=== PATIENT | female | born 2000 | race Caucasian/White ===

== ENCOUNTER → 2020-03-04 | Outpatient (CLI) | payer OTHER ==
[~2020-03-04] MED LIST: ALBU90OI INH; AMOX500 PO; AMOX50SU PO; AZIT250 PO; CEPH250SUA PO; CRUTCH3 USE; NAPR375 PO; ONDA8ODT MM; PRED15SY PO; PRED20 PO; PROCODE120 PO; RXCEPH250S PO; VENL150ER PO; VITAMINS; Zofran Odt4 MG SL
== END | disposition home or self-care (01) ==
LOC: LAB SHORT 13:19 → LAB EV 13:19
DX: R53.83 Other fatigue (principal); Z20.828 Contact with and (suspected) exposure to other viral communicable diseases
CPT/HCPCS: U0003

== ENCOUNTER → 2021-01-06 | Outpatient (CLI) | payer OTHER ==
[2021-01-09 10:10] LABS: CHLAMYDIA BY NAA Negative (Negative); GONOCOCCUS BY NAA Negative (Negative); TRICH VAG BY NAA Negative (Negative)
== END | disposition home or self-care (01) ==
LOC: LAB SHORT 19:28
PROVIDERS: Nurse Practitioner
DX: Z12.4 Encounter for screening for malignant neoplasm of cervix (principal); N72 Inflammatory disease of cervix uteri
CPT/HCPCS: 87070; 87205; 87491; 87591; 87661; G0123

== ENCOUNTER 2022-01-29 11:18 | Emergency (ER) | payer OTHER ==
[~2022-01-29] VITALS: Ht 157.5 cm; Wt 103.4 kg
[~2022-01-29 11:18] MED LIST changes: +ANTIDEPRESSANT PO; +DULO60 PO; +ESCI10 PO; +TRI-LO-SPRINTE1 EACH PO
[2022-01-29 12:20] LABS: BASOPHILS ABSOLUTE AUTO 0.06 K/mm3 (0.00-0.23); BASOPHILS PERCENT AUTO 1 % (0-2); EOSINOPHILS ABSOLUTE AUTO 0.24 K/mm3 (0.00-0.68); EOSINOPHILS PERCENT AUTO 3 % (0-6); Hematocrit 40.7 % (33.0-51.0); Hemoglobin 13.1 g/dL (11.5-16.0); IMMATURE GRAN ABSOLUTE AUTO 0.03 K/mm3 (0.00-0.10); IMMATURE GRAN PERCENT AUTO 0 % (0-1); LYMPHOCYTES PERCENT AUTO 32 % (21-46); MONOCYTES ABSOLUTE AUTO 0.62 K/mm3 (0.16-1.47); MONOCYTES PERCENT AUTO 7 % (4-13); Mean Corpuscular HGB Conc 32.2 g/dL (31.5-36.5); Mean Corpuscular Volume 84 fL (80-100); Mean Platelet Volume 10.3 fL (9.1-12.4); NEUTROPHILS PERCENT AUTO 58 % (41-73); Platelet Count 444 K/mm3 (150-400); RDW Coefficient Variation 13.7 % (11.7-14.2); RDW Standard Deviation 42.2 fL (35.1-46.3); Red Blood Cell Count 4.86 M/mm3 (3.80-5.20); White Blood Cell Count 9.35 K/mm3 (4.00-11.30)
[2022-01-29] MEDS ORDERED: ONDA4ODT (12:30)
[2022-01-29] MEDS ORDERED: Percocet 5-3251 EACH (12:30)
[2022-01-29 12:32] LABS: Alanine Aminotransfer (ALT/SGP 42 U/L (12-78); Albumin/Globulin Ratio 0.7 (0.8-1.8); Alk Phos 83 U/L (50-136); Anion Gap 5 mmol/L (6-16); Aspartate Aminotrans (AST/SGOT 23 U/L (12-37); Bilirubin, Total 0.3 mg/dL (0.1-1.0); Blood Urea Nitrogen 8 mg/dL (8-24); Bun/Creatinine Ratio 15.2 (12.0-20.0); CO2, Blood 28 mmol/L (21-32); Chloride, Blood 105 mmol/L (98-108); Creatinine, Blood 0.53 mg/dL (0.40-1.00); Globulin, Blood 4.4 g/dL (2.2-4.0); Glomerular Filtration Rate >60 (60-); Glucose, Blood 88 mg/dL (70-99); Potassium, Blood 3.9 mmol/L (3.5-5.5); Sodium, Blood 138 mmol/L (136-145); Total Protein, Blood 7.4 g/dL (6.4-8.2)
[2022-01-29 13:31] LABS: Source, Urine Clean Catch
[2022-01-29 13:38] LABS: Appearance, Urine Hazy (Clear); Bilirubin, Urine Neg (Neg); Blood, Urine 5+ (Neg); Color, Urine Amber (P-Yellow); Glucose Qualitative, Urine Neg (Neg); Ketones, Urine Neg (Neg); Leukocyte Esterase, Urine Neg (Neg); Nitrite, Urine Neg (Neg); Protein, Urine 1+ (Neg); Specific Gravity, Urine 1.005 (1.003-1.022); Urobilinogen, Urine NORM (Normal)
[2022-01-29 13:51] LABS: Red Blood Cells, Urine TNTC /hpf (0-2); Squamous Epithelial Cells Few /hpf (Few)
[2022-01-29 13:53] LABS: White Blood Cells, Urine Rare /hpf (0-5)
[2022-01-29 13:54] LABS: Bacteria Few /hpf
== END 2022-01-29 13:32 | disposition home or self-care (01) ==
LOC: ER 11:18
PROVIDERS: Emergency Medicine
DX: N93.8 Other specified abnormal uterine and vaginal bleeding (principal); M19.90 Unspecified osteoarthritis, unspecified site; F41.8 Other specified anxiety disorders; Z98.890 Other specified postprocedural states; Z79.899 Other long term (current) drug therapy
CPT/HCPCS: 36415; 80053; 81001; 81025; 85025; 86900; 86901; J1170; J2405; J7030

== ENCOUNTER → 2022-04-15 | Outpatient (CLI) | payer OTHER ==
[~2022-04-15] MED LIST changes: +ONDA4ODT; +Percocet 5-3251 EACH
== END | disposition home or self-care (01) ==
LOC: LAB 12:08 → LAB SHORT 12:08
DX: R30.9 Painful micturition, unspecified (principal)
CPT/HCPCS: 87086

== ENCOUNTER → 2022-04-28 | Outpatient (CLI) | payer OTHER ==
[2022-04-29 21:06] LABS: T-TRANSGLUTAMINASE (TTG) IGA <2 U/mL (0-3); T-TRANSGLUTAMINASE (TTG) IGG <2 U/mL (0-5)
== END | disposition home or self-care (01) ==
LOC: LAB SHORT 11:00 → LAB 11:00
PROVIDERS: Internal Medicine
DX: D50.9 Iron deficiency anemia, unspecified (principal)
CPT/HCPCS: 83516; 86364

== ENCOUNTER → 2022-07-13 | Outpatient (CLI) | payer OTHER | LOC: LAB SHORT 10:45 → LAB 10:45 | DX: R15.0 Incomplete defecation (principal) | CPT/HCPCS: 83993 ==

== ENCOUNTER 2023-02-12 18:16 | Emergency (ER) | payer OTHER ==
[~2023-02-12] VITALS: Ht 152.4 cm; Wt 104.8 kg
[2023-02-12 18:52] LABS: BASOPHILS ABSOLUTE AUTO 0.09 K/mm3 (0.00-0.23); BASOPHILS PERCENT AUTO 1 % (0-2); EOSINOPHILS ABSOLUTE AUTO 0.33 K/mm3 (0.00-0.68); EOSINOPHILS PERCENT AUTO 3 % (0-6); Hematocrit 43.6 % (33.0-51.0); Hemoglobin 14.4 g/dL (11.5-16.0); IMMATURE GRAN ABSOLUTE AUTO 0.03 K/mm3 (0.00-0.10); IMMATURE GRAN PERCENT AUTO 0 % (0-1); LYMPHOCYTES ABSOLUTE AUTO 3.39 K/mm3 (0.84-5.20); LYMPHOCYTES PERCENT AUTO 34 % (21-46); MONOCYTES ABSOLUTE AUTO 0.61 K/mm3 (0.16-1.47); MONOCYTES PERCENT AUTO 6 % (4-13); Mean Corpuscular HGB 28.1 pg (26.0-34.0); Mean Corpuscular Volume 85 fL (80-100); Mean Platelet Volume 10.1 fL (9.1-12.4); NEUTROPHILS ABSOLUTE AUTO 5.48 K/mm3 (1.96-9.15); NEUTROPHILS PERCENT AUTO 55 % (41-73); Platelet Count 426 K/mm3 (150-400); RDW Coefficient Variation 12.5 % (11.7-14.2); RDW Standard Deviation 38.7 fL (35.1-46.3); Red Blood Cell Count 5.12 M/mm3 (3.80-5.20); White Blood Cell Count 9.93 K/mm3 (4.00-11.30)
[2023-02-12 19:27] LABS: Albumin, Blood 3.6 g/dL (3.4-5.0); Albumin/Globulin Ratio 0.9 (0.8-1.8); Bilirubin, Total 0.2 mg/dL (0.1-1.0); Bun/Creatinine Ratio 27.5 (12.0-20.0); Calcium, Blood 9.2 mg/dL (8.5-10.1); Creatinine, Blood 0.44 mg/dL (0.40-1.00); Globulin, Blood 4.1 g/dL (2.2-4.0); Potassium, Blood 4.1 mmol/L (3.5-5.5); Total Protein, Blood 7.7 g/dL (6.4-8.2)
[2023-02-12] MEDS ORDERED: HYDACE25S PR (21:40)
[2023-02-12 21:50] VITALS: BP 109/66
== END 2023-02-12 21:52 | disposition home or self-care (01) ==
LOC: ER 18:16
PROVIDERS: Student in an Organized Health Care Education/Training Program
DX: K62.5 Hemorrhage of anus and rectum (principal); Z79.899 Other long term (current) drug therapy
CPT/HCPCS: 74177; 80053; 85025; 86850; 86900; 86901; 99284-25; Q9967

== ENCOUNTER → 2023-02-13 | Outpatient (CLI) | payer OTHER ==
[~2023-02-13] MED LIST changes: +FERSU90EL; +HYDACE25S PR; +METF500; +MULVITA; +PROG100
== END ==
LOC: LAB 13:41 → LAB SHORT 13:41
DX: B37.31 Acute candidiasis of vulva and vagina (principal)
CPT/HCPCS: 87070; 87205

== ENCOUNTER 2023-02-17 12:38 | Day surgery (SDC) | payer OTHER ==
[~2023-02-17] VITALS: Ht 152.4 cm; Wt 101.4 kg
[~2023-02-17 12:38] MED LIST changes: -FERSU90EL; -METF500; -MULVITA; -PROG100
[2023-02-17] MEDS ORDERED: FERSU90EL (14:18)
[2023-02-17] MEDS ORDERED: PROG100 (14:18)
[2023-02-17] MEDS ORDERED: MULVITA (14:18)
[2023-02-17] MEDS ORDERED: METF500 (14:18)
[2023-02-17 17:20] VITALS: BP 121/91
== END 2023-02-17 17:36 | disposition home or self-care (01) ==
LOC: ORSCSDS 12:38
PROVIDERS: Internal Medicine Gastroenterology
PROC: 0DJD8ZZ Inspection of Lower Intestinal Tract, Via Natural or Artificial Opening Endoscopic (ICD-10-PCS; principal; 2023-02-17 15:00)
PROC: 0DB78ZX Excision of Stomach, Pylorus, Via Natural or Artificial Opening Endoscopic, Diagnostic (ICD-10-PCS; principal; 2023-02-17 15:00)
PROC: 0DB98ZX Excision of Duodenum, Via Natural or Artificial Opening Endoscopic, Diagnostic (ICD-10-PCS; principal; 2023-02-17 15:00)
DX: R10.13 Epigastric pain (principal); K62.5 Hemorrhage of anus and rectum; R10.32 Left lower quadrant pain; K59.00 Constipation, unspecified; K64.8 Other hemorrhoids; K59.09 Other constipation; K29.70 Gastritis, unspecified, without bleeding; B96.81 Helicobacter pylori [H. pylori] as the cause of diseases classified elsewhere; K29.80 Duodenitis without bleeding; R73.03 Prediabetes; F41.8 Other specified anxiety disorders; Z79.84 Long term (current) use of oral hypoglycemic drugs; Z79.899 Other long term (current) drug therapy; E66.01 Morbid (severe) obesity due to excess calories; Z68.41 Body mass index [BMI] 40.0-44.9, adult
CPT/HCPCS: 82947; 88305; J0461; J2001; J2405; J2704; J7120; Q9968

== ENCOUNTER → 2023-07-12 | Outpatient (CLI) | payer OTHER ==
[~2023-07-12] MED LIST changes: +FERSU90EL; +METF500; +MULVITA; +PROG100
== END | disposition home or self-care (01) ==
LOC: LAB 11:12 → LAB SHORT 11:12
DX: M54.50 Low back pain, unspecified (principal)
CPT/HCPCS: 87086

== ENCOUNTER 2023-09-01 03:06 | Day surgery (SDC) | payer OTHER ==
[2023-09-01 15:00] VITALS: BP 115/76
[2023-09-01] MEDS ORDERED: Pyridium100 MG PO (16:02)
[2023-09-01] MEDS ORDERED: IRON PO (16:04)
== END 2023-09-01 16:16 | disposition home or self-care (01) ==
LOC: ATC 03:06
DX: R77.8 Other specified abnormalities of plasma proteins (principal); F32.9 Major depressive disorder, single episode, unspecified; G43.909 Migraine, unspecified, not intractable, without status migrainosus; Z79.899 Other long term (current) drug therapy
CPT/HCPCS: 96365; J2916

== ENCOUNTER 2024-03-04 13:13 | Emergency (ER) | payer OTHER ==
[~2024-03-04] VITALS: Ht 157.5 cm; Wt 90.3 kg
[~2024-03-04 13:13] MED LIST changes: +IRON PO; +Pyridium100 MG PO
[2024-03-04 14:17] LABS: BASOPHILS ABSOLUTE AUTO 0.05 K/mm3 (0.00-0.23); BASOPHILS PERCENT AUTO 0 % (0-2); EOSINOPHILS ABSOLUTE AUTO 0.25 K/mm3 (0.00-0.68); EOSINOPHILS PERCENT AUTO 2 % (0-6); Hematocrit 43.8 % (33.0-51.0); Hemoglobin 14.6 g/dL (11.5-16.0); IMMATURE GRAN ABSOLUTE AUTO 0.04 K/mm3 (0.00-0.10); IMMATURE GRAN PERCENT AUTO 0 % (0-1); LYMPHOCYTES ABSOLUTE AUTO 2.11 K/mm3 (0.84-5.20); LYMPHOCYTES PERCENT AUTO 18 % (21-46); MONOCYTES PERCENT AUTO 6 % (4-13); Mean Corpuscular HGB 28.7 pg (26.0-34.0); Mean Corpuscular HGB Conc 33.3 g/dL (31.5-36.5); Mean Corpuscular Volume 86 fL (80-100); Mean Platelet Volume 10.2 fL (9.1-12.4); NEUTROPHILS PERCENT AUTO 74 % (41-73); Platelet Count 365 K/mm3 (150-400); RDW Standard Deviation 40.3 fL (35.1-46.3); Red Blood Cell Count 5.09 M/mm3 (3.80-5.20); White Blood Cell Count 12.05 K/mm3 (4.00-11.30)
[2024-03-04 14:38] LABS: Albumin, Blood 3.9 g/dL (3.4-5.0); Bilirubin, Total 0.5 mg/dL (0.1-1.0); Bun/Creatinine Ratio 41.4 (12.0-20.0); Calcium, Blood 9.3 mg/dL (8.5-10.1); Creatinine, Blood 0.44 mg/dL (0.40-1.00); Potassium, Blood 3.8 mmol/L (3.5-5.5); Total Protein, Blood 7.9 g/dL (6.4-8.2)
[2024-03-04] MEDS ORDERED: Dicyclomine HCl 10 MG/ML 2ML Amp IM ONE (16:15)
[2024-03-04] MEDS ORDERED: Mag Hydrox/AL Hydrox/Simeth 30 ML UDC PO ONE (16:15)
[2024-03-04] MEDS ORDERED: Lidocaine 2% Viscous Soln 15 ML UDC PO ONE (16:15)
[2024-03-04] MEDS ORDERED: Atropine/Scopalam/Hyoscam/PB 5 ML UDC PO ONE (16:15)
[2024-03-04] MEDS ORDERED: Dicyclomine HCl 20 MG Tab PO ONE (16:40)
[2024-03-04] MEDS ORDERED: Morphine Sulfate 4 MG/1 ML Injection IV ONE (17:05)
[2024-03-04] MEDS ORDERED: Ondansetron HCl 2 MG / ML 2ML Vial IV ONE (17:05)
[2024-03-04] MEDS ORDERED: HYDR1TAB94 PO (17:12)
[2024-03-04] MEDS ORDERED: PANT40 PO (17:12)
[2024-03-04] MEDS ORDERED: ONDA4ODT MM (17:12)
[2024-03-04] MEDS ORDERED: DOCU100 PO (17:12)
[2024-03-04 17:15] VITALS: BP 127/93
== END 2024-03-04 17:37 | disposition home or self-care (01) ==
LOC: ER 13:13
PROVIDERS: Physician Assistant
DX: R10.13 Epigastric pain (principal); R10.32 Left lower quadrant pain; Z79.899 Other long term (current) drug therapy
CPT/HCPCS: 74018; 76830; 76856; 80053; 85025; 96374; 96375; 99284-25; A9270; J0500; J2270; J2405

== ENCOUNTER → 2024-04-01 | Outpatient (CLI) | payer OTHER ==
[~2024-04-01] MED LIST changes: +DOCU100 PO; +HYDR1TAB94 PO; +ONDA4ODT MM; +PANT40 PO
[2024-04-01 20:24] LABS: Bacterial Vaginosis PCR Negative (NEGATIVE); Candida Group, PCR NOT DETECTED (NOT DETECT); Candida glabrata-krusei, PCR NOT DETECTED (NOT DETECT)
== END ==
LOC: LAB 08:15 → LAB SHORT 08:15
PROVIDERS: Registered Nurse Community Health
DX: N89.8 Other specified noninflammatory disorders of vagina (principal); R30.0 Dysuria
CPT/HCPCS: 87086; 87481; 87661; 87801

== ENCOUNTER 2024-05-17 11:47 | Day surgery (SDC) | payer OTHER ==
[~2024-05-17] VITALS: Ht 157.5 cm; Wt 85.5 kg
[~2024-05-17 11:47] MED LIST changes: +Lactated Ringer's 1,000 ML IV ONE; +propofoL 50 ML IV ONE
[2024-05-17] MEDS ORDERED: MIRALAX17 GM (12:59)
[2024-05-17] MEDS ORDERED: QUDEXY (13:04)
[2024-05-17] MEDS ORDERED: ESCI20 (13:04)
[2024-05-17] MEDS ORDERED: SUMA25 (13:05)
[2024-05-17] MEDS ORDERED: Lactated Ringer's 1,000 ML IV ONE (13:27)
[2024-05-17] MEDS ORDERED: FentaNYL Citrate 50 MCG/ML 2 ML Injection ONE (13:43)
[2024-05-17] MEDS ORDERED: propofoL 0 ML IV ONE (13:43)
[2024-05-17] MEDS ORDERED: Midazolam HCL 1 MG/ML 5MLVIAL ONE (13:43)
[2024-05-17 14:39] VITALS: BP 104/74
== END 2024-05-17 14:49 | disposition home or self-care (01) ==
LOC: ORSCSDS 11:47
PROVIDERS: Internal Medicine Gastroenterology
PROC: 0DJ08ZZ Inspection of Upper Intestinal Tract, Via Natural or Artificial Opening Endoscopic (ICD-10-PCS; principal; 2024-05-17 13:00)
PROC: 0DJD8ZZ Inspection of Lower Intestinal Tract, Via Natural or Artificial Opening Endoscopic (ICD-10-PCS; principal; 2024-05-17 13:00)
DX: R10.84 Generalized abdominal pain (principal); R63.4 Abnormal weight loss; F41.8 Other specified anxiety disorders; E28.2 Polycystic ovarian syndrome; R73.03 Prediabetes; G47.33 Obstructive sleep apnea (adult) (pediatric); E66.9 Obesity, unspecified; Z68.34 Body mass index [BMI] 34.0-34.9, adult; Z79.84 Long term (current) use of oral hypoglycemic drugs; Z79.899 Other long term (current) drug therapy
CPT/HCPCS: 82947; J2250; J2704; J3010; J7120

== ENCOUNTER 2024-10-08 14:21 | Emergency (ER) | payer OTHER ==
[~2024-10-08] VITALS: Ht 157.5 cm; Wt 81.7 kg
[~2024-10-08 14:21] MED LIST changes: +ESCI20; -Lactated Ringer's 1,000 ML IV ONE; +MIRALAX17 GM; +QUDEXY; +SUMA25; -propofoL 50 ML IV ONE
[2024-10-08 14:31] VITALS: BP 130/881
[2024-10-08] MEDS ORDERED: DiphenhydrAMINE HCl 50 MG Cap PO ONE (14:35)
== END 2024-10-08 15:24 | disposition home or self-care (01) ==
LOC: ER 14:21
DX: T78.1XXA Other adverse food reactions, not elsewhere classified, initial encounter (principal); Z91.018 Allergy to other foods; Z79.84 Long term (current) use of oral hypoglycemic drugs; Z79.899 Other long term (current) drug therapy
CPT/HCPCS: 99282; A9270

== ENCOUNTER 2024-12-21 19:45 | Emergency (ER) | payer OTHER ==
[~2024-12-21] VITALS: Ht 157.5 cm; Wt 82.1 kg
[2024-12-21 20:19] LABS: BASOPHILS ABSOLUTE AUTO 0.07 K/mm3 (0.00-0.23); BASOPHILS PERCENT AUTO 1 % (0-2); EOSINOPHILS ABSOLUTE AUTO 0.16 K/mm3 (0.00-0.68); EOSINOPHILS PERCENT AUTO 2 % (0-6); Hematocrit 40.7 % (33.0-51.0); Hemoglobin 13.3 g/dL (11.5-16.0); IMMATURE GRAN ABSOLUTE AUTO 0.02 K/mm3 (0.00-0.10); IMMATURE GRAN PERCENT AUTO 0 % (0-1); LYMPHOCYTES PERCENT AUTO 30 % (21-46); MONOCYTES ABSOLUTE AUTO 0.76 K/mm3 (0.16-1.47); MONOCYTES PERCENT AUTO 8 % (4-13); Mean Corpuscular HGB 28.5 pg (26.0-34.0); Mean Corpuscular HGB Conc 32.7 g/dL (31.5-36.5); Mean Corpuscular Volume 87 fL (80-100); Mean Platelet Volume 10.2 fL (9.1-12.4); NEUTROPHILS ABSOLUTE AUTO 5.67 K/mm3 (1.96-9.15); NEUTROPHILS PERCENT AUTO 59 % (41-73); Platelet Count 366 K/mm3 (150-400); RDW Coefficient Variation 12.3 % (11.7-14.2); RDW Standard Deviation 39.6 fL (35.1-46.3); Red Blood Cell Count 4.66 M/mm3 (3.80-5.20); White Blood Cell Count 9.58 K/mm3 (4.00-11.30)
[2024-12-21 20:42] LABS: Albumin, Blood 3.5 g/dL (3.4-5.0); Bilirubin, Total 0.2 mg/dL (0.1-1.0); Bun/Creatinine Ratio 24.3 (12.0-20.0); Calcium, Blood 8.3 mg/dL (8.5-10.1); Creatinine, Blood 0.49 mg/dL (0.40-1.00); Globulin, Blood 3.4 g/dL (2.2-4.0); Potassium, Blood 3.2 mmol/L (3.5-5.5); Total Protein, Blood 6.9 g/dL (6.4-8.2)
[2024-12-21] MEDS ORDERED: DULO30 PO (21:06)
[2024-12-21] MEDS ORDERED: ESCI20 PO (21:07)
[2024-12-21] MEDS ORDERED: DULO60 PO (21:07)
[2024-12-21] MEDS ORDERED: Bentyl20 MG PO (21:08)
[2024-12-21] MEDS ORDERED: TOPI50 PO (21:08)
[2024-12-21] MEDS ORDERED: IMITREX50 M2 PO (21:08)
[2024-12-21] MEDS ORDERED: TOPI25 PO (21:08)
[2024-12-21 21:23] LABS: Source, Urine Voided
[2024-12-21 21:27] LABS: Appearance, Urine Cloudy (Clear); Bilirubin, Urine Neg (Neg); Blood, Urine 5+ (Neg); Color, Urine Amber (P-Yellow); Glucose Qualitative, Urine Neg (Neg); Ketones, Urine Neg (Neg); Leukocyte Esterase, Urine 2+ (Neg); Nitrite, Urine Neg (Neg); Protein, Urine 3+ (Neg); Urobilinogen, Urine 1+ (Normal)
[2024-12-21 21:37] LABS: Bacteria Many /hpf; Red Blood Cells, Urine TNTC /hpf (0-2); Squamous Epithelial Cells Rare /hpf (Few); White Blood Cells, Urine TNTC /hpf (0-5)
[2024-12-21] MEDS ORDERED: CefTRIAXone Sodium 1,000 MG in NS 50 ML IV ONE (22:00)
[2024-12-21] MEDS ORDERED: CEPH500 PO (22:15)
[2024-12-21 22:49] VITALS: BP 116/74
[2024-12-25] MEDS ORDERED: NITR100CA PO (09:11)
== END 2024-12-21 22:49 | disposition home or self-care (01) ==
LOC: ER 19:45
PROVIDERS: Emergency Medicine
DX: N39.0 Urinary tract infection, site not specified (principal); Z91.018 Allergy to other foods; Z79.899 Other long term (current) drug therapy; Z79.84 Long term (current) use of oral hypoglycemic drugs
CPT/HCPCS: 80053; 81001; 84703; 85025; 87077; 87086; 87186; 96374; 99284-25; J0696

== ENCOUNTER → 2025-01-02 | Outpatient (CLI) | payer OTHER ==
[~2025-01-02] MED LIST changes: +Bentyl20 MG PO; +CEPH500 PO; +DULO30 PO; +ESCI20 PO; +IMITREX50 M2 PO; +NITR100CA PO; +TOPI25 PO; +TOPI50 PO
== END ==
LOC: LAB 14:00 → LAB SHORT 14:00
DX: N39.0 Urinary tract infection, site not specified (principal)
CPT/HCPCS: 87086

== ENCOUNTER 2025-05-13 11:50 | Emergency (ER) | payer OTHER ==
[~2025-05-13] VITALS: Ht 157.5 cm; Wt 76.2 kg
[2025-05-13 13:22] LABS: Source, Urine Clean Catch
[2025-05-13 13:26] LABS: Bilirubin, Urine Neg (Neg); Glucose Qualitative, Urine Neg (Neg); Ketones, Urine Neg (Neg); Leukocyte Esterase, Urine Neg (Neg); Protein, Urine 2+ (Neg); Specific Gravity, Urine 1.005 (1.003-1.022); Urobilinogen, Urine NORM (Normal)
[2025-05-13 13:33] LABS: Color, Urine Pale Yellow (P-Yellow)
[2025-05-13 13:34] LABS: Red Blood Cells, Urine 0-2 /hpf (0-2); White Blood Cells, Urine 0-2 /hpf (0-5)
[2025-05-13] MEDS ORDERED: Ketorolac Tromethamine 15mg Vial IM ONE (15:55)
[2025-05-13] MEDS ORDERED: PHENA200 PO (15:56)
[2025-05-13 16:00] VITALS: BP 119/87
== END 2025-05-13 16:10 | disposition home or self-care (01) ==
LOC: ER 11:50
PROVIDERS: Student in an Organized Health Care Education/Training Program
DX: N39.0 Urinary tract infection, site not specified (principal); R31.9 Hematuria, unspecified; Z91.018 Allergy to other foods; Z79.899 Other long term (current) drug therapy; Z59.89 Other problems related to housing and economic circumstances
CPT/HCPCS: 76770; 76830; 76856; 81001; 81025; 96372; 99284-25; J1885

== ENCOUNTER 2025-08-14 06:28 | Emergency (ER) | payer OTHER ==
[~2025-08-14] VITALS: Ht 167.6 cm; Wt 83.9 kg
[~2025-08-14 06:28] MED LIST changes: +PHENA200 PO
[2025-08-14] MEDS ORDERED: Ketorolac Tromethamine 15mg Vial IV ONE (08:10)
[2025-08-14] MEDS ORDERED: NS 1,000 ML IV SCH (08:10)
[2025-08-14] MEDS ORDERED: MODAFINIL100 M4 PO (08:13)
[2025-08-14 08:16] LABS: BASOPHILS ABSOLUTE AUTO 0.06 K/mm3 (0.00-0.23); BASOPHILS PERCENT AUTO 1 % (0-2); EOSINOPHILS ABSOLUTE AUTO 0.13 K/mm3 (0.00-0.68); EOSINOPHILS PERCENT AUTO 2 % (0-6); Hematocrit 41.6 % (33.0-51.0); Hemoglobin 13.6 g/dL (11.5-16.0); IMMATURE GRAN ABSOLUTE AUTO 0.02 K/mm3 (0.00-0.10); IMMATURE GRAN PERCENT AUTO 0 % (0-1); LYMPHOCYTES ABSOLUTE AUTO 1.87 K/mm3 (0.84-5.20); LYMPHOCYTES PERCENT AUTO 22 % (21-46); MONOCYTES ABSOLUTE AUTO 0.79 K/mm3 (0.16-1.47); MONOCYTES PERCENT AUTO 9 % (4-13); Mean Corpuscular HGB Conc 32.7 g/dL (31.5-36.5); Mean Corpuscular Volume 89 fL (80-100); NEUTROPHILS ABSOLUTE AUTO 5.77 K/mm3 (1.96-9.15); NEUTROPHILS PERCENT AUTO 67 % (41-73); NRBC ABSOLUTE 0.00 K/mm3 (0.00-0.02); NRBC Auto 0.0 /100 WBC (0.0-0.2); Platelet Count 366 K/mm3 (150-400); RDW Coefficient Variation 12.8 % (11.7-14.2); RDW Standard Deviation 41.6 fL (35.1-46.3)
[2025-08-14 08:44] LABS: Alanine Aminotransfer (ALT/SGP 30 U/L (12-78); Albumin, Blood 3.3 g/dL (3.4-5.0); Albumin/Globulin Ratio 1.0 (0.8-1.8); Anion Gap 9 mmol/L (3-11); Aspartate Aminotrans (AST/SGOT 20 U/L (12-37); Beta HCG, Quantitative, Serum <1 mIU/mL (0-3); Bilirubin, Total 0.5 mg/dL (0.1-1.0); Blood Urea Nitrogen 9 mg/dL (8-24); CO2, Blood 24 mmol/L (21-32); Calcium, Blood 8.9 mg/dL (8.5-10.1); Chloride, Blood 107 mmol/L (98-108); Creatinine, Blood 0.41 mg/dL (0.40-1.00); Globulin, Blood 3.3 g/dL (2.2-4.0); Glucose, Blood 91 mg/dL (70-99); Potassium, Blood 4.1 mmol/L (3.5-5.5); Sodium, Blood 136 mmol/L (136-145); Total Protein, Blood 6.6 g/dL (6.4-8.2)
[2025-08-14] MEDS ORDERED: Ondansetron HCl 2 MG / ML 2ML Vial IV ONE (09:35)
[2025-08-14] MEDS ORDERED: OxyCODONE 5 mg/Acetamin 325 mg TABLET PO ONE (09:45)
[2025-08-14] MEDS ORDERED: FentaNYL Citrate 50 MCG/ML 2 ML Injection IV ONE (09:45)
[2025-08-14 10:46] LABS: Source, Urine Clean Catch
[2025-08-14 10:51] LABS: Bilirubin, Urine Neg (Neg); Color, Urine Yellow (P-Yellow); Glucose Qualitative, Urine Neg (Neg); Ketones, Urine Neg (Neg); Leukocyte Esterase, Urine Neg (Neg); Protein, Urine Neg (Neg); Specific Gravity, Urine 1.005 (1.003-1.022); Urobilinogen, Urine NORM (Normal)
[2025-08-14] MEDS ORDERED: Percocet 5-3251 EACH PO (11:15)
[2025-08-14] MEDS ORDERED: ONDA4ODT MM (11:15)
[2025-08-14 11:56] VITALS: BP 119/92
[2025-08-25] MEDS ORDERED: B-12500 MC2 PO (10:11)
[2025-08-25] MEDS ORDERED: METF500 PO (10:11)
[2025-08-25] MEDS ORDERED: MULTIVITAM PO (10:12)
[2025-08-25] MEDS ORDERED: MYO INOSITOL PO (10:13)
[2025-08-25] MEDS ORDERED: ORILISSA150 MG PO (10:14)
[2025-08-25] MEDS ORDERED: PANT40 PO (10:15)
[2025-08-26] MEDS ORDERED: DULO60 PO (19:52)
== END 2025-08-14 11:55 | disposition home or self-care (01) ==
LOC: ER 06:28
PROVIDERS: Student in an Organized Health Care Education/Training Program
DX: R10.21 Pelvic and perineal pain right side (principal); Z79.899 Other long term (current) drug therapy; Z91.010 Allergy to peanuts
CPT/HCPCS: 76830; 76856; 80053; 81003; 83690; 84702; 85025; 93005; 93010; 96361; 96374; 96375; 99284-25; A9270; J1885; J2405; J3010; J7030

== ENCOUNTER 2025-08-27 09:16 | Day surgery (SDC) | payer OTHER ==
[2025-08-27] VITALS (17 sets, daily range): BP systolic 102–129; BP diastolic 64–88
[~2025-08-27] VITALS: Ht 157.5 cm; Wt 75.6 kg
[~2025-08-27 09:16] MED LIST changes: +B-12500 MC2 PO; +CeFAZolin Sodium 2,000 MG in NS 100 ML IV SCH; +METF500 PO; +MODAFINIL100 M4 PO; +MULTIVITAM PO; +MYO INOSITOL PO; +ORILISSA150 MG PO; +Percocet 5-3251 EACH PO
[2025-08-27] MEDS ORDERED: FentaNYL Citrate 50 MCG/ML 2 ML Injection ONE ×2 (09:43→13:14)
[2025-08-27] MEDS ORDERED: Midazolam HCl 1MG / ML 2ML Vial ONE (09:43)
[2025-08-27] MEDS ORDERED: Rocuronium Bromide 10 MG/ML 5ML Injection IV ONE ×2 (09:45→11:11)
[2025-08-27] MEDS ORDERED: Inderal 20 mg T20 MG PO (09:48)
--- NOTE | 2025-08-27 10:00 | NUR ---
Ambulatory in Day Surgery History, Chart, Medications and Allergies reviewed before start of procedure. Pre-Op teaching done. Pt verbalizes understanding. Patient States Post-Procedure ride home has been arranged.
[2025-08-27] MEDS ORDERED: Bupivacaine 0.5% W/EPI 1:200000 SDV 30 ML Vial ONE (10:01)
--- NOTE | 2025-08-27 10:24 | NUR ---
PT'S OWN CPAP MACHINE PLACED WITH HER PERSONAL BELONGINGS UNDER GURNEY.
[2025-08-27] MEDS ORDERED: Dexamethasone Sod Phos 10 MG/ML 1ML VIAL ONE (11:10)
[2025-08-27] MEDS ORDERED: Ondansetron HCl 2 MG / ML 2ML Vial ONE ×2 (11:10→13:14)
[2025-08-27] MEDS ORDERED: Ondansetron HCl 2 MG / ML 2ML Vial IV PRN ×2 (12:35→14:10)
[2025-08-27] MEDS ORDERED: HYDROmorphone HCl/Pf 1MG SYR IV PRN ×3 (12:35→14:10)
[2025-08-27] MEDS ORDERED: FentaNYL Citrate 50 MCG/ML 2 ML Injection IV PRN ×2 (12:35)
[2025-08-27] MEDS ORDERED: Sugammadex Sodium 200 MG/2ML SDV (100 MG/ML) ONE (12:48)
[2025-08-27] MEDS ORDERED: HYDROmorphone HCl/Pf 1MG SYR ONE ×3 (12:49→13:43)
--- NOTE | 2025-08-27 14:01 | NUR ---
POST OP S/P ROBOTIC TOTAL LAP HYSTER. X5 LAP SITES TO ABD WITH BANDAIDS ARE CDI. KPAD TO ABD FOR COMFORT. CHASTITY PAD IN PLACE WITH NO VAGINAL BLEEDING NOTED. PT REPORTS 10/10 PAIN ON HER ABD AND MILD NAUSEA. POST OP VSS AND IN PROGRESS. OFFERING SIPS OF WATER AND CRACKERS. ORIENTED TO TREATMENT PLAN AND CALL LIGHT. CALL LIGHT IN REACH.
[2025-08-27] MEDS ORDERED: FLU VACC TS2025-26(6MOS UP)/PF 45 MCG/0.5 ML SYRINGE IM ONE (14:10)
[2025-08-27] MEDS ORDERED: Naloxone HCl 0.4MG / ML 1ML Vial IV PRN (14:10)
[2025-08-27] MEDS ORDERED: OxyCODONE 5 mg/Acetamin 325 mg TABLET PO PRN (14:10)
[2025-08-27] MEDS ORDERED: Ketorolac Tromethamine 30mg Vial IV PRN (14:20)
--- NOTE | 2025-08-27 16:54 | NUR ---
SHIFT SUMMARY S/P LAP HYSTER, LAP SITES WITH BAND-AIDES C/D/I. PATIENT IS MEDICATED FOR NAUSEA, REPORTS PAIN 8/10. AFTER NAUSEA MEDICATION PATIENT IS DROWSY AND SLEEPS. VSS. HAS NOT YET WOKEN UP TO VOID. MINIMAL INTAKE. ABLE TO MAKE NEEDS KNOWN. PATIENT HAS HOME CPAP FOR TONIGHT.
[2025-08-27] MEDS ORDERED: CeFAZolin Sodium 2,000 MG in NS 100 ML IV SCH (19:00)
[2025-08-28 00:33] VITALS: BP 117/77
[2025-08-28 05:29] LABS: BASOPHILS ABSOLUTE AUTO 0.03 K/mm3 (0.00-0.23); BASOPHILS PERCENT AUTO 0 % (0-2); EOSINOPHILS ABSOLUTE AUTO 0.01 K/mm3 (0.00-0.68); EOSINOPHILS PERCENT AUTO 0 % (0-6); Hematocrit 36.5 % (33.0-51.0); Hemoglobin 12.0 g/dL (11.5-16.0); IMMATURE GRAN ABSOLUTE AUTO 0.02 K/mm3 (0.00-0.10); IMMATURE GRAN PERCENT AUTO 0 % (0-1); LYMPHOCYTES ABSOLUTE AUTO 2.54 K/mm3 (0.84-5.20); LYMPHOCYTES PERCENT AUTO 25 % (21-46); MONOCYTES ABSOLUTE AUTO 1.09 K/mm3 (0.16-1.47); MONOCYTES PERCENT AUTO 11 % (4-13); Mean Corpuscular HGB Conc 32.9 g/dL (31.5-36.5); Mean Corpuscular Volume 87 fL (80-100); NEUTROPHILS ABSOLUTE AUTO 6.59 K/mm3 (1.96-9.15); NEUTROPHILS PERCENT AUTO 64 % (41-73); NRBC ABSOLUTE 0.00 K/mm3 (0.00-0.02); NRBC Auto 0.0 /100 WBC (0.0-0.2); Platelet Count 319 K/mm3 (150-400); RDW Coefficient Variation 12.8 % (11.7-14.2); RDW Standard Deviation 41.2 fL (35.1-46.3)
[2025-08-28 05:32] VITALS: BP 121/75
--- NOTE | 2025-08-28 06:00 | NUR ---
MEDICATION ADMIN/EMAR CRASH. DURING MEDICATION ADMINISTRATION THE COMPUTER CRASHED AND LOCKED MEDICATIONS IN THE SYSTEM. AFTER RESTART UNABLE TO CHART MEDICATIONS. THE FOLLOWING MEDS GIVEN AT 0558: ZOFRAN 4MG/2ML VIA IV, KETOROLAC 30MG/ML VIA IV, SIMETHICONE 80MG ONE CHEWABLE TAB, OXYCODONE/APAP 5/325MG ONE TAB PO. VERIFIED DOSEAGES AGAINST EMAR WITH DIRECTOR OF EMPLOYEE DEVELOPMENTNAEL VINCENT TO VERIFY ACCURACY. NOTIFIED ONCOMING ANEL MATA OF ISSUE WITH DOCUMENTATION.
--- NOTE | 2025-08-28 07:37 | NUR ---
SHIFT SUMMARY NOC. PT POD 1 FOR LAP HYSTER. LAP SITES C/D/I. PT VERY PAINFUL, DROWSY, AND NAUSEOUS AT START OF SHIFT. PT HAD X1 EPISODE OF EMESIS, AND TOLERATING MINIMAL PO INTAKE. SCANT PINK BLOOD ON CHASTITY PAD. PT VOIDING URINE. PT MEDICATED FOR PAIN PER EMAR, PLEASE SEE PREV NOTE REGARDING ISSUE WITH DOCUMENTING MOST RECENT DOSES OF ZOFRAN, SIMETHICONE, PERCOCET, AND TORADOL. MAKES NEEDS KNOWN, CALL LIGHT IN REACH. PT SHOWED IMPROVEMENT IN SX T/O SHIFT.
[2025-08-28 07:51] VITALS: BP 114/71
--- NOTE | 2025-08-28 12:04 | NUR ---
[facility] EMAR MEDICATED PATIENT WITH 30 MG OF TORADOL @1200 MEDICATED [place] 2 TABS OF PERCOCET 5/325 PER EMAR. WILL DOCUMENT ON DOWN TIME CHARTING.
[2025-08-28] MEDS ORDERED: PROM25 PO (13:28)
[2025-08-28] MEDS ORDERED: SIME80CH PO (13:29)
[2025-08-28] MEDS ORDERED: Percocet 5-3251 EACH PO (13:29)
[2025-08-28] MEDS ORDERED: ESTA1 PO (13:32)
[2025-08-28 14:49] VITALS: BP 126/81
--- NOTE | 2025-08-28 15:23 | NUR ---
DISCHARGE PATIENT VOIDING, TOLERATING PO MEDICAITONS, DENIES N/V. PAIN IS WELL MANAGED. IV TAKEN OUT INTACT. ALL INSTRUCTIONS READ AND SIGNED PATIENT IS WHEELED OUT WITH ALL BELONGINGS TO AWAITING VEHICLE.
== END 2025-08-28 15:16 | disposition home or self-care (01) ==
LOC: ORSCMMR 09:16 → ORD 11:30 → SURS 13:46 → ORSCMMR 08-28 15:16
PROVIDERS: Obstetrics & Gynecology
DX: N92.1 Excessive and frequent menstruation with irregular cycle (principal); N80.9 Endometriosis, unspecified; R10.20 Pelvic and perineal pain unspecified side; N94.12 Deep dyspareunia; N94.6 Dysmenorrhea, unspecified; G47.33 Obstructive sleep apnea (adult) (pediatric); K21.9 Gastro-esophageal reflux disease without esophagitis; F41.8 Other specified anxiety disorders; F43.10 Post-traumatic stress disorder, unspecified; Z79.899 Other long term (current) drug therapy
CPT/HCPCS: 36415; 85025; 86850; 86900; 86901; 88307; 94762; A9270; J0690; J1100; J1171; J1885; J2250; J2405; J2704; J3010; J7120